=== PATIENT | male | born 1985 | race Two or more races ===

== ENCOUNTER 2022-09-18 23:47 | Emergency (ER) | payer SELFPAY ==
--- NOTE | 2022-09-18 23:52 | XRR_ITS ---
PROCEDURE INFORMATION: Exam: XR Right Hand Exam date and time: 09/19/2022 12:06 AM Age: 37 years old Clinical indication: Injury or trauma; Other: Multiple dog bites; Wrist and hand; Right TECHNIQUE: Imaging protocol: Radiologic exam of the Right hand. Views: 3 or more views. COMPARISON: No relevant prior studies available. FINDINGS: Bones/joints: Very tiny acute cortical fracture along the dorsal distal radius demonstrated on the lateral view. No dislocation. Soft tissues: Right wrist soft tissue swelling and mild subcutaneous emphysema. No radiopaque foreign body. XR/XR hand RT min 3V* [id number] IMPRESSION: 1. Very tiny acute cortical fracture along the dorsal distal radius demonstrated on the lateral view. 2. Right wrist soft tissue swelling and mild subcutaneous emphysema.
[2022-09-19 00:16] VITALS: BP 160/99; PULSE 72; RESP 18; TEMP 37.1; O2SAT 98; BMI 35.0
--- NOTE | 2022-09-19 00:34 | W.ED.ANIMALB ---
HPI - Animal Bite General: Chief Complaint: Animal Bite Stated Complaint: dog bit to Right hand Time Seen by Provider: 09/18/22 23:48 Source: patient Mode of arrival: ambulatory Limitations: no limitations History of Present Illness: 37-year-old male who states that he was try to break up a dog fight between his dogs he was bit on his right hand he has puncture wounds to his right hand and wrist. He states he is up-to-date on his tetanus the dogs are up-to-date on their shots as well. He has pain in his hand he rates a 6 out of 10 denies any other injuries. Associated symptoms: Deny chills, fever(s) or headache(s) Review of Systems Const: Denies: fever(s), chills, body aches or change in appetite Eyes: Denies: blurry vision or eye discomfort ENMT: Denies: throat pain or dental pain Card: Denies: chest pain Resp: Denies: dyspnea GI: Denies: abdominal pain, nausea, vomiting or diarrhea : Denies: dysuria Musc: Reports: extremity pain Skin/Breast: Denies: rash Neuro: Denies: headache(s) Psych: Denies: depression Rigo/Lymph: Denies: easy bruising All/Imm: Denies: urticaria PFSH ED PFSH: Medical History (Updated 09/19/22 @ 00:38 by Emma Chaney MD) No pertinent past medical history Social History (Updated 09/19/22 @ 00:38 by Emma Chaney MD) Substance/Drug Use: never Physical Exam Const: COMMON NORMALS: no acute distress HENMT: COMMON NORMALS: normocephalic HEAD & SCALP: normocephalic Eye: COMMON NORMALS: conjunctivae normal CONJUNCTIVA: Yes conjunctivae normal Neck/C-Spine: COMMON NORMALS: full ROM Chest: COMMONS NORMALS: normal inspection of the chest Resp: COMMON NORMALS: normal respiratory effort Cardio: COMMON NORMALS: regular rate RATE: regular rate GI: INSPECTION: Yes normal to inspection Extremity: NARRATIVE EXTREMITY EXAM: Multiple small puncture wounds to right hand and wrist bleeding controlled at this time swelling noticed no obvious deformity Course Vital Signs: Vital signs: Vital Signs Temperature 98.7 F 09/19/22 00:16 Pulse Rate 72 09/19/22 00:16 Respiratory Rate 18 09/19/22 00:16 Blood Pressure 160/99 09/19/22 00:16 Pulse Oximetry 98 09/19/22 00:16 Oxygen Delivery Me thod 09/19/22 00:16 MDM - Animal Bite Medical Decision Making Patient presents with a dog bite to his right hand and wrist is multiple small puncture wounds there is no wounds that need to be sutured dogs are up-to-date on their shots patient is up-to-date on his tetanus we will place him on Augmentin he is stable for discharge. 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
[2022-09-19] MEDS: amoxicillin-clav 875-125 mg Tablet 1 TAB PO (01:11)
[2022-09-19] MEDS: naproxen 500 mg Tablet PO (01:11)
== END 2022-09-19 01:13 | disposition home or self-care (01) ==
PROVIDERS: Emergency Provider Emergency Medicine
DX: S61.451A Open bite of right hand, initial encounter (principal); W54.0XXA Bitten by dog, initial encounter
CPT/HCPCS: 73130; 99283

== ENCOUNTER 2024-11-08 17:30 | Outpatient (CLI) | payer MEDICAID, SELFPAY ==
--- NOTE | 2024-11-08 17:36 | US_ITS ---
WS: [id number] TESTICULAR ULTRASOUND HISTORY: PAIN COMPARISON: None available. TECHNIQUE: Real-time and color Doppler imaging or utilized to perform a testicular ultrasound. Right testicle: 3.7 cm x 2.5 cm x 2.4 cm. There are numerous microliths scattered throughout the testicle. No mass. Mild heterogeneity. Normal vascularity. Normal color Doppler is present throughout. Systolic and diastolic velocities are both present. No significant hydrocele. Right epididymis: Normal epididymis with no increased vascularity. Left testicle: 3.7 cm x 2.8 cm x 2.4 cm. Normal size testicle with numerous microliths scattered throughout the testicle. No mass identified. Mild heterogeneity. Normal color Doppler is present throughout. Systolic and diastolic velocities are both present. Mildly complex small hydrocele. Left epididymis: Normal epididymis with no increased vascularity. Small LEFT varicosity. US/US scrotum [id number] IMPRESSION: 1. No testicular mass or torsion. 2. Numerous microliths scattered throughout each testicle. 3. Small complex LEFT hydrocele. 4. LEFT varicosity.
== END 2024-11-08 17:31 | disposition home or self-care (01) ==
LOC: RAD 17:32
PROVIDERS: PCP Family Medicine; Visit Provider Family Medicine
DX: N43.3 Hydrocele, unspecified (principal); I86.1 Scrotal varices; N50.89 Other specified disorders of the male genital organs
CPT/HCPCS: 76870

== ENCOUNTER 2025-03-28 23:08 | Emergency (ER) | payer MEDICAID, SELFPAY ==
[2025-03-28 23:09] VITALS: BP 145/89; PULSE 89; RESP 18; TEMP 36.7; O2SAT 98; BMI 34.2
[2025-03-28 23:29] VITALS: BP 143/89; PULSE 85; RESP 16; O2SAT 96
[2025-03-29 00:23] VITALS: BP 135/53; PULSE 98; RESP 16; O2SAT 96
[2025-03-29] MEDS: amoxicillin-clav 875-125 mg Tablet 1 TAB PO (00:23)
--- NOTE | 2025-03-29 00:48 | W.ED.ANIMALB ---
HPI - Animal Bite General: Chief Complaint: Animal Bite Stated Complaint: Rt Leg Injury Time Seen by Provider: 03/28/25 23:48 History of Present Illness: Patient is a well-appearing 40-year-old male seen for dog bite to the left anterior thigh. He states it is his dog and his dog is up-to-date on shots. His tetanus is also up-to-date. Dog bit him through his shorts. There was some bleeding but he was able to stop with direct pressure. He is able to walk and has no difficulty moving the leg. Pain is minimal. Related Data Previous Rx's ?Medication ?Instructions ?Recorded amoxicillin 500 mg-potassium 1 tab PO BID #14 tabs 09/19/22 clavulanate 125 mg tablet (Augmentin) naproxen 500 mg tablet (Naprosyn) 500 mg PO BID PRN pain #20 tabs 09/19/22 amoxicillin 875 mg-potassium 1 tab PO BID 7 days #14 tabs 03/29/25 clavulanate 125 mg tablet Allergies Allergy/AdvReac Type Severity Reaction Status Date / Time No Known Allergies Allergy Verified 03/28/25 23:18 [facility] ED PFSH: Medical History (Updated 03/29/25 @ 00:21 by Haroldo Lozano MD) No pertinent past medical history Social History (Updated 09/19/22 @ 00:38 by Emma Chaney MD) Substance/Drug Use: never Physical Exam Const: COMMON NORMALS: no acute distress, patient oriented x3 and alert HENMT: COMMON NORMALS: normocephalic and atraumatic HEAD & SCALP: normocephalic and atraumatic Eye: COMMON NORMALS: Equal, round and reactive pupils present, EOMs intact bilaterally and no scleral icterus PUPIL: Yes Equal, round and reactive pupils present Resp: COMMON NORMALS: normal respiratory effort and No retractions Cardio: COMMON NORMALS: regular rate, regular rhythm and No murmurs present (Cardio) RATE: regular rate RHYTHM: regular rhythm GI: COMMON NORMALS: Normal to inspection, nondistended, normoactive bowel sounds present, Soft to palpation and non-tender PALPATION: Yes Soft to palpation Neuro: COMMON NORMALS: patient oriented x3 SENSORIUM/ORIENTATION: Yes alert Skin: NARRATIVE SKIN EXAM: Of multiple superficial partial thickness lacerations of the right anterior thigh which do not require any specific intervention which are roughly 3 cm in length. Just cephalad to these, there is a soft tissue defect consistent with dog bite with macerated edges which are abnormal. There is tissue missing. Bite extends down to the subcutaneous fat layer. There is no muscle or tendon or nerve or vascular involvement. No visualized foreign body within the wound. Wound is rhomboid shaped and roughly 2 x 1 cm. Course Vital Signs: Vital signs: Vital Signs Temperature 98.0 F 03/28/25 23:09 Pulse Rate 98 03/29/25 00:23 Respiratory Rate 16 03/29/25 00:23 Blood Pressure 135/53 03/29/25 00:23 Pulse Oximetry 96 03/29/25 00:23 Oxygen Delivery Me thod Room Air 03/28/25 23:29 MDM - Animal Bite Medical Decision Making We had a long discussion about the relative merits of closing this wound versus not closing it and patient is not worried about cosmesis and would prefer to do everything possible to avoid infection. Wound was thoroughly irrigated first using dilute Betadine and saline and then rinsed with sterile saline. Wound will be dressed and he will be discharged in stable condition. He received a first dose of Augmentin here and will receive a 7-day course of the same. He knows that he should return to the emergency department if he sees any sign of infection. Wound will heal by secondary intention No radiology studies performed this visit Discharge Plan Discharge Patient Disposition: Home Clinical Impression: Dog bite Condition: Stable Prescriptions: New amoxicillin-pot clavulanate 875-125 mg tablet 1 tab PO BID 7 Days Qty: 14 0RF No Action Naprosyn 500 mg tablet 500 mg PO BID PRN (Reason: pain) Qty: 20 0RF Augmentin 500-125 mg tablet 1 tab PO BID Qty: 14 0RF Discharge Orders: Discharge ED (Routine); Ordered 03/29/25 Ordered By: Haroldo Lozano Referrals: Raji Huang MD [Primary Care Provider] - Discharge Diet: Usual diet Discharge Activity: Resume usual activity Patient Instructions: Animal Bite (ED) Print Language: Stateless Coding Level of Care Code ED 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
[2025-03-29 00:55] VITALS: BP 115/73; PULSE 79; RESP 16; O2SAT 97
== END 2025-03-29 00:47 | disposition home or self-care (01) ==
PROVIDERS: Emergency Provider Student in an Organized Health Care Education/Training Program; PCP Family Medicine
DX: S71.152A Open bite, left thigh, initial encounter (principal); W54.0XXA Bitten by dog, initial encounter
CPT/HCPCS: 99283; J9999